=== PATIENT | female | born 1960 | race Caucasian/White ===

== ENCOUNTER → 2020-03-10 13:28 | Outpatient (CLI) | payer BC | END | disposition home or self-care (01) | LOC: D.LABREF 13:28 | PROVIDERS: ATTEND Orthopaedic Surgery | DX: M17.12 Unilateral primary osteoarthritis, left knee (principal) ==

== ENCOUNTER 2020-03-19 16:12 | Inpatient (IN) | payer BC ==
[~2020-03-19] VITALS: Ht 165.1 cm; Wt 65.0 kg
[2020-03-30] MEDS ORDERED: JANUMET XR 1001 EACH PO (13:07)
[2020-03-30] MEDS ORDERED: LISINOPRIL-HCT1 EAC8 PO (13:08)
[2020-03-30] MEDS ORDERED: ULTRAM50 MG PO (13:09)
[2020-03-30] MEDS ORDERED: ATIVAN1 MG PO (13:24)
[2020-03-30] MEDS ORDERED: OMEGA-3100 MG (13:26)
[2020-03-30] MEDS ORDERED: OZEMPIC1 MG/0.75 SC (13:33)
[2020-03-31 09:16] LABS: BASOPHILS 0.5 % (0-2); EOSINOPHILS 5.3 % (0-7); HEMATOCRIT 43.9 % (36.0-48.0); HEMOGLOBIN 14.1 g/dL (12-16); IMMATURE GRANULOCYTES 0.3 % (0-5); LYMPHOCYTES 29.6 % (15-50); MCH 28.2 pg (26.0-34.0); MCHC 32.1 g/dL (31.0-37.0); MCV 87.8 fL (80.0-100.0); MEAN PLATELET VOLUME 9.4 fL (7.4-10.4); MONOCYTES 10.8 % (2-11); NEUTROPHILS 53.5 % (40-80); RDW 13.6 % (11.5-14.5); WBC 7.3 10x3/uL (4.8-10.8)
[2020-03-31 09:17] LABS: PLATELET COUNT 324 10x3/uL (130-400)
[2020-03-31 09:23] LABS: ANION GAP 8.4 mmol/L (8-16); CALCIUM 9.6 mg/dL (8.5-10.1); CARBON DIOXIDE 33.6 mmol/L (21.0-32.0); CREATININE - SERUM 1.3 mg/dL (0.6-1.3)
[2020-03-31 09:48] LABS: APTT 35.2 SECONDS (22.8-39.4); BACTERIA FEW /hpf (NEGATIVE); BILIRUBIN NEGATIVE (NEGATIVE); EPITHELIAL CELLS 0-5 /hpf (0-5); GLUCOSE NEGATIVE (NEGATIVE); KETONE NEGATIVE (NEGATIVE); NITRITE NEGATIVE (NEGATIVE); RED CELLS - URINE NONE SEEN /hpf (0-5); SPECIFIC GRAVITY 1.015 (1.005-1.020); UROBILINOGEN NORMAL (NORMAL); WHITE CELLS - URINE 25-50 /hpf (NEGATIVE)
[2020-03-31 10:25] LABS: INR 0.93 (0.85-1.17); PROTIME 12.4 SECONDS (11.6-15.0)
[2020-04-06] VITALS (12 sets, daily range): BP systolic 116–150; BP diastolic 68–88; Ht 165.1 cm; Wt 65.0 kg
--- NOTE | 2020-04-06 11:35 | NUR ---
THROUGH TRAFFIC KEPT TO A MINIMUM. HIBACLENS AND ALCOHOL USED TO CLEAN BEFORE PREPPING. STERILE GOWNED AND GLOVED TO PREP WITH HIBACLENS.
--- NOTE | 2020-04-06 14:43 | NUR ---
PATIENT IN BED WITH IV INTACT. VS STABLE. COMPLAINTS OF PAIN AT THIS TIME. MEDS GIVEN. FAMILY AT BEDSIDE. CALL LIGHT WITHIN REACH.
--- NOTE | 2020-04-06 18:00 | NUR ---
PATIENT CPM ON. IV INTACT. NO COMPLAINTS. PAIN MEDS GIVEN TO PATIENT. BP AND SATS STABLE. CALL LIGHT WITHIN REACH. TEDS AND SCDS ON.
--- NOTE | 2020-04-06 19:30 | NUR ---
RESTIN GIN BED CPM IN USE DENIES PAIN OR NEEDS AT THIS TIME, SEE SHIFT ASSESSMENT CALL LIGHT IN REACH
[2020-04-07] VITALS: BP 138/53
[2020-04-07 04:30] VITALS: BP 140/73
--- NOTE | 2020-04-07 06:29 | OP ---
PATIENT NAME: RYLAN CRAIN MEDICAL RECORD: [id number] :56 LOCATION:D.M3 D.1209 ADMISSION DATE:04/06/20 SURGEON: NESTOR SHAH DO DATE OF OPERATION: 04/06/2020 PROCEDURE PERFORMED: Left total knee arthroplasty. PREOPERATIVE DIAGNOSIS: Left knee osteoarthritis. POSTOPERATIVE DIAGNOSIS: Left knee osteoarthritis. INDICATIONS: Ms. Crain is a 60-year-old female who presented to my office having tried all manner of nonoperative treatment for her left knee. It is quite varus deformity and she is tired of dealing with the pain as it hurts her all the time. She has failed all conservative management and was aware of the risks including infection, bleeding, damage to nerves and vessels, need for further surgery, failure of hardware, continued pain, arthrofibrosis, blood clots, and even as well as failure of implants and she signed the consent. SURGEON: Nestor Shah DO DESCRIPTION OF PROCEDURE: The patient was taken to the operative suite, laid in supine position, given a block by anesthesia in the preoperative area. Prior to that, she was then sedated and LMA was placed. The left lower extremity was then prepped and draped in sterile fashion. She was given a gram of TXA, 80 mg gentamicin, and a gram of Ancef preoperatively. After the timeout was performed, the left knee was marked with an incision over the anterior knee and covered in Ioban. I then made an incision over the lukasz with a 10-blade scalpel to make careful dissection down to the capsule. We used a fresh 10 blade scalpel to do the medial parapatellar approach. We then everted the patella, removed part of the fat pad and milled it down to fit a 31 poly as it was sized. I then flexed up the knee and entered the femoral canal and used a distal femur intramedullary guide and cut the distal femur. The proximal tibial guide was then used and cut the proximal tibia. We then removed that and the menisci and coagulated any bleeding. We then put the extension block in it and it fit very well. We removed the pins from the tibia and then flexed the knee up and measured the femur, 3 degrees of external rotation to be 62.5. A 4-in-1 cutting block was then placed and then vein joint was used to assure there was no notching. We then cut the femur with a 4-in-1 cutting block. Bone was removed. We then put the 62.5 trial on with the foot in the tibia and ranged it. Once we ranged the tibia and marked the rotation, we then drilled for the lug holes in the femur and then through the holes for the patella. This was then exposed the tibia and sized to be 67; 67 was then drilled, reamed and punched and extra holes put in the tibia then irrigated thoroughly and then put cement on the implant and in the tibia and impacted in place and removed the excess cement, then impacted the femur on and put a 10 poly between brought out to extension and irrigated out the patella, put the cement on the patella implant as well as in the holes and put squeezer on and squeeze it, held in place and removed the excess cement. We then put in 10% povidone-iodine and 500 mL of normal saline and allowed to sit for 3 minutes and irrigated out with more than a liter of normal saline. We then trialed the 12 poly fit very well. We decided to go with that, put the 12 E poly, anterior stabilized poly and ranged very well and was very solid. I then put in the locking bar and put in Halle, vancomycin and tobramycin powder and closed the capsule with #1 pops. This is done by myself, Timoteo Rivas, certified ski patroller, and Grace Young, certified ski patroller in a OPERATIVE REPORT [id number] RYLAN CRAIN lglnpt-ma-oebaf fashion. The skin was then closed by Alcira with 2-0 Vicryl in inverted interrupted fashion and ZipLine placed on the knee. She was then dressed with Adaptic, 4 x 4s, ABD, Webril, Fei wrap and awakened and taken to recovery in stable condition. Blood loss approximately 250 mL. COMPLICATIONS: None. TRANSINT:[id number] Voice Confirmation ID: [id number] DOCUMENT ID: [id number] NESTOR SHAH DO at 0629 CC: [id number] DICTATION DATE: 04/06/20 121 CAMPUS ADMINISTRATOR: 04/06/202128 ADM IN [facility] [id number] [place] [address]
[2020-04-07 07:40] LABS: BASOPHILS 0.3 % (0-2); EOSINOPHILS 5.2 % (0-7); HEMATOCRIT 31.7 % (36.0-48.0); HEMOGLOBIN 9.7 g/dL (12-16); IMMATURE GRANULOCYTES 0.3 % (0-5); LYMPHOCYTES 11.7 % (15-50); MCH 27.6 pg (26.0-34.0); MCHC 30.6 g/dL (31.0-37.0); MCV 90.1 fL (80.0-100.0); MEAN PLATELET VOLUME 9.6 fL (7.4-10.4); MONOCYTES 8.5 % (2-11); RBC 3.52 10x6/uL (4.00-5.40); RDW 13.7 % (11.5-14.5); WBC 6.5 10x3/uL (4.8-10.8)
[2020-04-07 07:41] LABS: PLATELET COUNT 217 10x3/uL (130-400)
[2020-04-07 07:57] VITALS: BP 148/73
[2020-04-07 09:06] LABS: ANION GAP 7.6 mmol/L (8-16); BILIRUBIN - TOTAL 0.6 mg/dL (0.2-1.3); CALCIUM 7.7 mg/dL (8.5-10.1); CARBON DIOXIDE 29.2 mmol/L (21.0-32.0); CREATININE - SERUM 1.1 mg/dL (0.6-1.3); POTASSIUM - SERUM 3.8 mmol/L (3.5-5.1); PROTEIN - SERUM 5.8 g/dL (6.4-8.2)
[2020-04-07 12:15] VITALS: BP 125/67
[2020-04-07 16:00] VITALS: BP 150/77
[2020-04-07 20:00] VITALS: BP 126/54
--- NOTE | 2020-04-07 20:00 | NUR ---
ALERT RESTING IN BED, REPORTS FEELING BETTER TODAY STILL SOME PAIN TO LEFT KNEE, CPM IN USE AT THIS TIME, SEE SHIFT ASSESSMENT, CALL LIGHT IN REACH
[2020-04-08 04:00] VITALS: BP 114/58
[2020-04-08 05:45] LABS: BASOPHILS 0.3 % (0-2); EOSINOPHILS 5.6 % (0-7); HEMATOCRIT 33.1 % (36.0-48.0); HEMOGLOBIN 10.7 g/dL (12-16); IMMATURE GRANULOCYTES 0.1 % (0-5); LYMPHOCYTES 13.9 % (15-50); MCH 28.1 pg (26.0-34.0); MCHC 32.3 g/dL (31.0-37.0); MONOCYTES 13.4 % (2-11); NEUTROPHILS 66.7 % (40-80); PLATELET COUNT 247 10x3/uL (130-400); RBC 3.81 10x6/uL (4.00-5.40); RDW 13.6 % (11.5-14.5); WBC 7.8 10x3/uL (4.8-10.8)
[2020-04-08 05:59] LABS: MCV 86.9 fL (80.0-100.0)
[2020-04-08 06:17] LABS: ANION GAP 7.5 mmol/L (8-16); BILIRUBIN - TOTAL 0.76 mg/dL (0.2-1.3); CALCIUM 7.6 mg/dL (8.5-10.1); CARBON DIOXIDE 30.9 mmol/L (21.0-32.0); CREATININE - SERUM 1.3 mg/dL (0.6-1.3); POTASSIUM - SERUM 3.4 mmol/L (3.5-5.1)
[2020-04-08 07:24] VITALS: BP 123/55
--- NOTE | 2020-04-08 08:09 | MORECARE ---
CASE MANAGEMENT DISCHARGE SUMMARY PATIENT: RYLAN CRAIN UNIT: [id number] ADM DATE: 04/06/20 AGE: 60 : 56 SEX: F ROOM/BED: D.1209 AUTHOR: YEIMI GONSALEZ PHYSICIAN: REFERRING PHYSICIAN: TANNER SHAH DO DATE OF SERVICE: 04/08/20 Discharge Plan Patient Name: RYLAN CRAIN Facility: [facility]:[place] : 1960 Planned Disposition: Home or Self Care Anticipated Discharge Date: Discharge Date: Expected LOS: Initial Reviewer: [email or web address] Initial Review Date: 04/06/2020 Generated: 04/08/20 9:08 am Patient Name: RYLAN CRAIN Page 60016 at 0809 All edits/amendments must be made on the electronic document DICTATION DATE: 04/08/20 08 CONSULTANT INTERNSHIP: JF 04/08/20 08 RPT#: [id number] DC DATE: STATUS: ADM IN [facility] [address] [place] [address] END OF REPORT
--- NOTE | 2020-04-08 08:16 | MORECARE ---
CASE MANAGEMENT DISCHARGE SUMMARY PATIENT: RYLAN CRAIN UNIT: [id number] ADM DATE: 04/06/20 AGE: 60 : 56 SEX: F ROOM/BED: D.1209 AUTHOR: YEIMI GONSALEZ PHYSICIAN: REFERRING PHYSICIAN: TANNER SHAH DO DATE OF SERVICE: 04/08/20 Discharge Plan Patient Name: RYLAN CRAIN Facility: [facility]:[place] : 1960 Planned Disposition: Home or Self Care Anticipated Discharge Date: Discharge Date: Expected LOS: Initial Reviewer: [email or web address] Initial Review Date: 04/06/2020 Generated: 04/08/20 9:16 am Comments DCP- Discharge Planning Updated by [email or web address]: Maria Del Carmen Rodriguez on 04/08/20 7:[address] Patient Name: RYLAN CRAIN Admission Status: Elective Accout number: [id number] Admission Date: 04-06-2020 : 1960 Admission Diagnosis: Attending: TANNER SHAH Current LOS: 2 Anticipated DC Date: Planned Disposition: Home or Self Care Primary Insurance: [employer] TRUE BLUE PPO Discharge Planning Comments: CM met with patient to complete initial dc planning assessment. CM educated patient on the CM role and verbal consent given by patient to complete assessment. Patient lives at home with her spouse where she is independent with her care . At discharge patient plans to return home and feels this is a safe discharge. Her will be her substitute bus driver home. CM discussed availability of home health, rehab services, and medical equipment. She would like to do her PT at [facility]. I have made her first appointment for SundayApril 12 at 1:00. I spoke with [facility]. She will have a copy of her script for PT in her DC packet. She has already been set up with [facility]. She has a walker, CPM, and Ice Machine. I have contacted Flash with [facility] to see about getting her a BSC. He said he will take care of it. Patient denied known discharge needs at this time. CM will continue to follow and will assist as needed with dc plans/needs. Social Media Editor: Maria Del Carmen Rodriguez DCPIA - Discharge Planning Initial Assessment Updated by [email or web address]: Maria Del Carmen Rodriguez on 04/08/20 8:08 am * Is the patient Alert and Oriented? Yes * How many steps to enter\exit or inside your home? * PCP [facility] * Pharmacy [facility] [address] * Preadmission Environment Home with Family * ADLs Independent * Equipment Walker * Other Equipment CPM ICE MACHINE BSC ( WILL BE DELIVERED) * List name and contact numbers for known caregivers / representatives who currently or will assist patient after discharge: REKHA (SPOUSE) [phone] * Verbal permission to speak to the caregivers and representatives has been obtained from the patient. N/A * Community resources currently utilized None * Additional services required to return to the preadmission environment? Yes * Can the patient safely return to the preadmission environment? Yes * Has this patient been hospitalized within the prior 30 days at any hospital? No External Providers External Provider: [facility] Next Contact Date: Service Request Date: Service Type: Resolution: Reviewer: Comments: Last DP export: 04/08/20 7:08 am Patient Name: RYLAN CRAIN Page 20720 at 0816 All edits/amendments must be made on the electronic document DICTATION DATE: 04/08/20815 INSTALLATION TECH: JF 04/08/20815 RPT#: [id number] DC DATE: STATUS: ADM IN [facility] [address] [place] [address] END OF REPORT
--- NOTE | 2020-04-08 11:55 | NUR ---
PATIENT AMBULATED WITH PT WITH NO PROBLEMS THIS MORNING. LAYING IN BED WITH IV INTACT. NO COMPLAINTS OR SIGNS OF DISTRESS. WANTS TO GO HOME AND GET CLEANED UP. AT BEDSIDE. CALL LIGHT WITHIN REACH. TEDS AND SCDS ON AND WORKING.
[2020-04-08 12:05] VITALS: BP 118/56
[2020-04-08] MEDS ORDERED: HYDROCODON-ACE1 EA10 PO (12:56)
[2020-04-08] MEDS ORDERED: VISTARIL50 MG PO (12:56)
[2020-04-08] MEDS ORDERED: ELIQUIS2.5 MG PO (12:56)
[2020-04-08] MEDS ORDERED: KEFLEX500 MG PO (12:57)
--- NOTE | 2020-04-08 14:10 | NUR ---
PATIENT RECIEVED DC INSTRUCTIONS AND PRESCRIPTIONS. IV REMOVED WITH CATH TIP INTACT. NO QUESTIONS AT THIS TIME. EXTRA DRESSINGS SENT HOME WITH PATIENT PER PHYSICIAN REQUEST. WAITING FOR WC FOR DC.
--- NOTE | 2020-04-09 13:12 | MORECARE ---
CASE MANAGEMENT DISCHARGE SUMMARY PATIENT: RYLAN CRAIN UNIT: [id number] ADM DATE: 04/06/20 AGE: 60 : 56 SEX: F ROOM/BED: D.1209 AUTHOR: YEIMI GONSALEZ PHYSICIAN: REFERRING PHYSICIAN: TANNER SHAH DO DATE OF SERVICE: 04/09/20 Discharge Plan Patient Name: RYLAN CRAIN Facility: [facility]:[place] : 1960 Planned Disposition: Home or Self Care Anticipated Discharge Date: Discharge Date: 04/08/2020 Expected LOS: Initial Reviewer: [email or web address] Initial Review Date: 04/06/2020 Generated: 04/09/20 2:12 pm Comments DCP- Discharge Planning Updated by [email or web address]: Maria Del Carmen Rodriguez on 04/08/20 7:[address] Patient Name: RYLAN CRAIN Admission Status: Elective Accout number: [id number] Admission Date: 04-06-2020 : 1960 Admission Diagnosis: Attending: TANNER SHAH Current LOS: 2 Anticipated DC Date: Planned Disposition: Home or Self Care Primary Insurance: [employer] TRUE BLUE PPO Discharge Planning Comments: CM met with patient to complete initial dc planning assessment. CM educated patient on the CM role and verbal consent given by patient to complete assessment. Patient lives at home with her spouse where she is independent with her care . At discharge patient plans to return home and feels this is a safe discharge. Her will be her charter bus driver home. CM discussed availability of home health, rehab services, and medical equipment. She would like to do her PT at [facility]. I have made her first appointment for SundayApril 12 at 1:00. I spoke with [facility]. She will have a copy of her script for PT in her DC packet. She has already been set up with [facility]. She has a walker, CPM, and Ice Machine. I have contacted Flash with [facility] to see about getting her a BSC. He said he will take care of it. Patient denied known discharge needs at this time. CM will continue to follow and will assist as needed with dc plans/needs. Bods Developer: Maria Del Carmen Rodriguez DCPIA - Discharge Planning Initial Assessment Updated by [email or web address]: Maria Del Carmen Rodriguez on 04/08/20 8:08 am * Is the patient Alert and Oriented? Yes * How many steps to enter\exit or inside your home? * PCP [facility] * Pharmacy [facility] [address] * Preadmission Environment Home with Family * ADLs Independent * Equipment Walker * Other Equipment CPM ICE MACHINE BSC ( WILL BE DELIVERED) * List name and contact numbers for known caregivers / representatives who currently or will assist patient after discharge: REKHA (SPOUSE) [phone] * Verbal permission to speak to the caregivers and representatives has been obtained from the patient. N/A * Community resources currently utilized None * Additional services required to return to the preadmission environment? Yes * Can the patient safely return to the preadmission environment? Yes * Has this patient been hospitalized within the prior 30 days at any hospital? No Last DP export: 04/08/20 7:16 am Patient Name: RYLAN CRAIN Page 86208 at 1312 All edits/amendments must be made on the electronic document DICTATION DATE: 04/09/20 1312 CONTRACTS ADVISOR: JF 04/09/20 1312 RPT#: [id number] DC DATE:04/08/20 STATUS: DIS IN [facility] [address] [place] [address] END OF REPORT
== END 2020-04-08 14:59 | disposition home or self-care (01) | DRG 470 ==
LOC: D.M3 04-06 09:30 → D.SDCHOLD 04-06 09:30 → D.M3 04-06 11:33 → D.SDCHOLD 04-06 12:00 → D.M3 04-08 14:59
PROVIDERS: Family Medicine Adult Medicine; ADMIT Orthopaedic Surgery; ATTEND Orthopaedic Surgery
PROC: 0SRD0J9 Replacement of Left Knee Joint with Synthetic Substitute, Cemented, Open Approach (ICD-10-PCS; principal; 2020-04-06 11:30)
DX: M17.12 Unilateral primary osteoarthritis, left knee (principal); E11.65 Type 2 diabetes mellitus with hyperglycemia; E11.40 Type 2 diabetes mellitus with diabetic neuropathy, unspecified; I10 Essential (primary) hypertension; F41.9 Anxiety disorder, unspecified; G89.29 Other chronic pain; M54.9 Dorsalgia, unspecified

== ENCOUNTER → 2020-05-28 11:31 | Outpatient (CLI) | payer MEDICARE ==
[2020-04-06 14:01] VITALS: BMI 23.8
[~2020-05-28 11:31] MED LIST: ATIVAN1 MG PO; ELIQUIS2.5 MG PO; HYDROCODON-ACE1 EA10 PO; JANUMET XR 1001 EACH PO; KEFLEX500 MG PO; LISINOPRIL-HCT1 EAC8 PO; OMEGA-3100 MG; OZEMPIC1 MG/0.75 SC; ULTRAM50 MG PO; VISTARIL50 MG PO
== END | disposition home or self-care (01) ==
LOC: D.US 11:00
PROVIDERS: ATTEND Orthopaedic Surgery
DX: Z96.652 Presence of left artificial knee joint (principal)